=== PATIENT | female | born 1955 | race Caucasian/White ===

== ENCOUNTER 2017-07-29 14:44 | Emergency (ER) | payer BC ==
[2017-07-29 15:59] LABS: BASOPHILS 0.3 % (0-2); EOSINOPHILS 0.9 % (0-7); HEMATOCRIT 41.2 % (36.0-48.0); HEMOGLOBIN 14.1 g/dL (12-16); IMMATURE GRANULOCYTES 0.1 % (0-5); LYMPHOCYTES 26.9 % (15-50); MCH 31.5 pg (26.0-34.0); MCHC 34.2 g/dL (31.0-37.0); MCV 92.2 fL (80.0-100.0); MEAN PLATELET VOLUME 10.1 fL (7.4-10.4); NEUTROPHILS 65.8 % (40-80); PLATELET COUNT 264 10x3/uL (130-400); RBC 4.47 10x6/uL (4.00-5.40); RDW 13.1 % (11.5-14.5)
[2017-07-29 16:13] LABS: INR 0.87 (0.85-1.17); PROTIME 11.7 SECONDS (11.6-15.0)
[2017-07-29 16:17] LABS: ALBUMIN 4.6 g/dL (3.4-5.0); ALKALINE PHOSPHATASE 95 U/L (46-116); ALT (SGPT) 24 U/L (10-68); CALC OSMOLALITY 279 mosm/kg (275-300); CARBON DIOXIDE 29.9 mmol/L (21.0-32.0); CHLORIDE - SERUM 100 mmol/L (98-107); CREATININE - SERUM 0.9 mg/dL (0.6-1.3); GLUCOSE 97 mg/dL (74-106); POTASSIUM - SERUM 3.9 mmol/L (3.5-5.1); PROTEIN - SERUM 7.9 g/dL (6.4-8.2); SODIUM 140 mmol/L (136-145); UREA NITROGEN 15 mg/dL (7-18); eGFR NON AFRICAN AMERICAN 67 mL/min (90-120)
[2017-07-29 16:25] LABS: CREATINE KINASE 93 UL (21-215); PRO BNP 55 pg/mL (0-125); TROPONIN-I < 0.017 ng/mL (0.000-0.060)
[2017-07-29 16:56] LABS: APPEARANCE CLEAR (CLEAR); BILIRUBIN NEGATIVE (NEGATIVE); COLOR YELLOW (YELLOW); GLUCOSE NEGATIVE (NEGATIVE); KETONE NEGATIVE (NEGATIVE); LEUKOCYTE ESTERASE NEGATIVE (NEGATIVE); NITRITE NEGATIVE (NEGATIVE); PROTEIN NEGATIVE (NEGATIVE); UROBILINOGEN NORMAL (NORMAL)
[2017-07-29 17:08] LABS: UDS - AMPHET NEGATIVE QUAL (NEGATIVE); UDS - BARB NEGATIVE QUAL (NEGATIVE); UDS - BENZO NEGATIVE QUAL (NEGATIVE); UDS - COCAINE NEGATIVE QUAL (NEGATIVE); UDS - METH NEGATIVE QUAL (NEGATIVE); UDS - OPIATE NEGATIVE QUAL (NEGATIVE); UDS - PCP NEGATIVE QUAL (NEGATIVE); UDS - THC NEGATIVE QUAL (NEGATIVE)
== END 2017-07-29 19:28 | disposition home or self-care (01) ==
LOC: D.ER 14:44
PROVIDERS: Nurse Practitioner Family
DX: J01.90 Acute sinusitis, unspecified (principal); I10 Essential (primary) hypertension; R94.31 Abnormal electrocardiogram [ECG] [EKG]; Z85.828 Personal history of other malignant neoplasm of skin

== ENCOUNTER 2017-08-01 12:44 | Observation (INO) | payer BC ==
[~2017-08-01] VITALS: Ht 165.1 cm; Wt 65.9 kg
[2017-08-01 13:36] LABS: CKMB 1.1 U/L (0.0-3.6); CREATINE KINASE 76 UL (21-215)
[2017-08-01 13:39] LABS: TROPONIN-I < 0.017 ng/mL (0.000-0.060)
[2017-08-01] MEDS ORDERED: CATAPRES0.1 MG (16:44)
[2017-08-01] MEDS ORDERED: ZITHROMAX250 MG PO (16:45)
[2017-08-01 17:38] VITALS: BP 155/67; Ht 165.1 cm; Wt 65.9 kg
[2017-08-01 19:00] VITALS: BP 115/79
[2017-08-02] VITALS: BP 131/59
[2017-08-02 04:00] VITALS: BP 129/73
[2017-08-02 08:26] VITALS: BP 127/69
[2017-08-02 11:58] VITALS: BP 129/70
== END 2017-08-02 14:45 | disposition home or self-care (01) ==
LOC: D.ER 12:44 → D.M2 15:29 → OBSVTIME 15:29 → D.M2 15:29
PROVIDERS: Emergency Medicine; ADMIT Emergency Medicine
DX: R07.9 Chest pain, unspecified (principal); G62.9 Polyneuropathy, unspecified; I10 Essential (primary) hypertension; K21.9 Gastro-esophageal reflux disease without esophagitis; Z72.0 Tobacco use

== ENCOUNTER → 2017-08-18 14:08 | Outpatient (CLI) | payer BC ==
[2017-08-01 17:38] VITALS: BMI 24.1
[~2017-08-18 14:08] MED LIST: CATAPRES0.1 MG; ZITHROMAX250 MG PO
== END | disposition home or self-care (01) ==
LOC: D.MRI 14:08
DX: M54.5 Low back pain (principal)

== ENCOUNTER → 2018-03-16 16:22 | Outpatient (CLI) | payer BC ==
[2017-08-01 17:38] VITALS: BMI 24.1
[2018-03-16 16:51] LABS: ALT (SGPT) 24 U/L (10-68); CALC OSMOLALITY 272 mosm/kg (275-300); CALCIUM 9.1 mg/dL (8.5-10.1); CARBON DIOXIDE 27.6 mmol/L (21.0-32.0); CHLORIDE - SERUM 100 mmol/L (98-107); CHOL - HDL RATIO 2.6 ratio (2.3-4.1); CHOLESTEROL, TOTAL 202 mg/dL (0-200); CREATINE KINASE 103 UL (21-215); CREATININE - SERUM 0.8 mg/dL (0.6-1.3); GLUCOSE 94 mg/dL (74-106); HDL CHOLESTEROL 77 mg/dL (32-96); LDL CHOLESTEROL 110 mg/dL (0-100); LDL-HDL RATIO 1.4 ratio (1.5-3.5); POTASSIUM - SERUM 4.7 mmol/L (3.5-5.1); SODIUM 137 mmol/L (136-145); TRIGLYCERIDE 79 mg/dL (30-200); UREA NITROGEN 10 mg/dL (7-18); eGFR NON AFRICAN AMERICAN 77 mL/min (90-120)
== END | disposition home or self-care (01) ==
LOC: D.LABREF 16:22
PROVIDERS: Internal Medicine Cardiovascular Disease
DX: I10 Essential (primary) hypertension (principal)

== ENCOUNTER → 2018-05-03 19:22 | Outpatient (CLI) | payer BC ==
[2017-08-01 17:38] VITALS: BMI 24.1
[2018-05-03 21:10] LABS: CHOL - HDL RATIO 1.8 ratio (2.3-4.1); LDL-HDL RATIO 0.7 ratio (1.5-3.5)
== END | disposition home or self-care (01) ==
LOC: D.LAB 19:22
PROVIDERS: Internal Medicine Cardiovascular Disease
DX: E78.5 Hyperlipidemia, unspecified (principal)